=== PATIENT | female | born 1975 ===

== ENCOUNTER 2018-06-10 03:15 | Outpatient (CLI) | payer BC | END 2018-06-10 23:59 | disposition home or self-care (01) | LOC: DIABETIC 03:15 | PROVIDERS: ATTEND Specialist | DX: E11.65 Type 2 diabetes mellitus with hyperglycemia (principal); I10 Essential (primary) hypertension; E78.2 Mixed hyperlipidemia; Z79.84 Long term (current) use of oral hypoglycemic drugs | CPT/HCPCS: G0108 ==